=== PATIENT | male | born 1970 | race Caucasian/White ===

== ENCOUNTER 2024-04-19 10:44 | Emergency (ER) | payer OTHER ==
[~2024-04-19] VITALS: Ht 170.2 cm
[2024-04-19] MEDS ORDERED: PAXIL30 MG PO (11:02)
[2024-04-19] MEDS ORDERED: MELATONIN5 M2 PO (11:03)
[2024-04-19 11:06] LABS: BASOPHILS 1.4 % (0-2); EOSINOPHILS 3.1 % (0-6); HEMATOCRIT 42.3 % (35.0-50.0); HEMOGLOBIN 14.3 g/dL (12.0-18.0); LYMPHOCYTES 28.2 % (24-44); MCH 29.7 (27-36); MCHC 33.8 g/dl (30-36); MCV 88.1 fl (81-99); MONOCYTES 13.8 % (0-12); NEUTROPHILS 53.5 % (39-80); PLATELET COUNT 265 K/uL (140-440); RDW 13.2 (10.5-15.0)
[2024-04-19 11:26] LABS: ALBUMIN 3.9 g/dL (3.4-5.0); ALBUMIN/GLOBULIN RATIO 1.05 (1.1-2.4); ANION GAP 11.5 (7-21); BILIRUBIN, TOTAL 0.3 ng/dL (0.2-1.0); BUN/CREATININE RATIO 17.77 (6.0-28.6); CALCIUM 8.7 mg/dL (8.5-10.1); CREATININE, SERUM 0.9 mg/dL (0.70-1.30); MAGNESIUM 1.9 mg/dL (1.8-2.4); POTASSIUM 4.5 mmol/L (3.5-5.1); PROTEIN, TOTAL 7.6 g/dL (6.4-8.2)
[2024-04-19 12:21] LABS: INFLUENZA B NAA NEGATIVE (NEGATIVE); RESPIRATORY SYNCYTIAL VIR NAA NEGATIVE (NEGATIVE)
[2024-04-19 13:43] VITALS: BP 151/100
--- NOTE | 2024-04-20 11:29 | EKG ---
[facility] [address] [facility] [place], [place] [address] Signed Normal sinus rhythm Inferior infarct , age undetermined Abnormal ECG No previous ECGs available Confirmed by Edilberto Ryan MD ([id number]) on 04/20/2024 11:29:14 AM Electronically Signed By: EDILBERTO RYAN 04/20/24 1129 PATIENT NAME: GUY HOOKS DEBBIE Electrocardiogram DATE OF : 70 PHYSICIAN: EDILBERTO RYAN REPORT #: [id number] REPORT IS CONFIDENTIAL AND NOT TO BE RELEASED WITHOUT AUTHORIZATION
== END 2024-04-19 13:43 | disposition home or self-care (01) ==
LOC: ED 10:44
PROVIDERS: Emergency Medicine
DX: R07.89 Other chest pain (principal); R06.02 Shortness of breath; R05.9 Cough, unspecified; Z79.899 Other long term (current) drug therapy
CPT/HCPCS: 36415; 71045; 80053; 83735; 84484; 85025; 85379; 87502; 93005; 93010; 99285-25; U0002